=== PATIENT | female | born 1985 | race Caucasian/White ===

== ENCOUNTER 2016-04-13 15:22 | Emergency (ER) | payer OTHER ==
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
[2016-04-13 15:45] VITALS: BP 127/82; PULSE 88; BMI 25.0
== END 2016-04-13 16:30 | disposition home or self-care (01) ==
LOC: EDMC 15:22
DX: T14.90 Injury, unspecified (principal); R51 Headache; M54.9 Dorsalgia, unspecified; V89.2XXA Person injured in unspecified motor-vehicle accident, traffic, initial encounter
CPT/HCPCS: 80307; 81002; 99283; G0378